=== PATIENT | female | born 1985 | race Two or more races ===

== ENCOUNTER 2024-05-01 23:15 | Inpatient (IN) | payer MEDICAID, OTHER ==
[~2024-05-01] VITALS: Ht 157.5 cm; Wt 56.8 kg
[2024-05-01 23:41] LABS: Basophils # (auto) 0.1 10 ^3/uL (0-0.2); Basophils % (auto) 0.5 % (0.0-2.0); Eosinophils # (auto) 0.3 10 ^3/uL (0-0.8); Eosinophils % (auto) 2.2 % (0.0-7.0); Hematocrit 44.1 % (36.0-46.0); Hemoglobin 14.8 g/dL (12.2-16.2); Lymphocytes # (auto) 3.6 10 ^3/uL (0.4-5.4); Lymphocytes % (auto) 30.5 % (10.0-50.0); Mean Corpuscular Hemoglobin 29.3 pg (28.0-32.0); Mean Corpuscular Hgb Conc. 33.5 g/dL (32.0-36.0); Mean Corpuscular Volume 87.5 fL (80.0-100.0); Monocytes # (auto) 0.7 10 ^3/uL (0-1.3); Monocytes % (auto) 5.6 % (0.0-12.0); Neutrophils # (auto) 7.3 10 ^3/uL (1.6-8.6); Neutrophils % (auto) 61.2 % (37.0-80.0); Platelet Count (auto) 195 10^3/uL (140-450); Red Blood Cells 5.04 10^6/uL (4.0-5.20); Red Cell Distribution Width 13.3 % (11.8-14.3); White Blood Cell 11.9 10^3/uL (4.4-10.8)
[2024-05-01] MEDS: NITROGLYCERIN 0.4 MG SL TAB SL ONE (23:49)
[2024-05-01 23:56] LABS: Alanine Aminotransferase 18 U/L (7-40); Albumin 4.9 g/dL (3.2-4.8); Alkaline Phosphatase 108 U/L (46-116); Anion Gap 13 (5-15); Aspartate Aminotransferase 19 U/L (13-40); BUN/Creatinine Ratio 12.5 (10.0-20.0); Blood Urea Nitrogen 10 mg/dL (9-23); Carbon Dioxide 18 mmol/L (20-30); Chloride 107 mmol/L (98-107); Glucose 155 mg/dL (74-106); Potassium 2.9 mmol/L (3.5-5.1); Sodium 138 mmol/L (136-145)
[2024-05-01 23:57] LABS: Bilirubin, Total 0.4 mg/dL (0.2-1.0); Total Protein 8.1 g/dL (5.7-8.2)
[2024-05-02] VITALS (38 sets, daily range): BP systolic 100–121; BP diastolic 52–80; PULSE 70–99; RESP 12–22; TEMP 97.4–98.5; O2SAT 93–99
[2024-05-02] MEDS: HEPARIN SODIUM (PORCINE) 5000 UNITS/ML 1ML VIAL ONE ×2 (00:21→00:32)
[2024-05-02] MEDS: HEPARIN SODIUM (PORCINE) 5000 UNITS/ML 1ML VIAL IV ONE (00:21)
[2024-05-02] MEDS: VERAPAMIL 2.5MG/ML INJ 2ML VIAL IV ONE (00:32)
[2024-05-02] MEDS: fentaNYL CITRATE 100 MCG/2 ML VL ONE (00:32)
[2024-05-02] MEDS: ANGIOMAX 250 MG VIAL IV ONE (00:32)
[2024-05-02] MEDS: LIDOCAINE 2%HCL (LOCAL ANESTH.) INJ 20ML MDV ONE (00:33)
[2024-05-02] MEDS: MIDAZOLAM HCL 2MG/2ML 2ml VIAL (1mg/ml) ONE (00:33)
[2024-05-02] MEDS: SODIUM CHL 0.9% 50 ML ONE (00:33)
[2024-05-02] MEDS: HEPARIN IN NS 1000Units/500mL 1,500 ML ONE (00:33)
[2024-05-02 00:38] LABS: INR 0.99 (0.9-1.15); Partial Thromboplastin Time 27.9 SEC (24.5-34.5); Prothrombin Time 10.5 sec (9.3-11.8)
[2024-05-02] MEDS: IODIXANOL 320MG/ML 100ML BTL IV ONE ×2 (00:43→01:01)
[2024-05-02] MEDS: ATROPINE SULF 1 MG/10ml SYR ONE (00:56)
[2024-05-02 01:24] LABS: Triglycerides 139 mg/dL (< 150)
[2024-05-02 01:25] LABS: LDL Cholesterol 132 mg/dL (< 100)
[2024-05-02 01:26] LABS: Cholesterol 191 mg/dL (< 200); HDL Cholesterol 40 mg/dL (40-59)
[2024-05-02] MEDS: TICAGRELOR 90 MG TAB ONE (01:36)
[2024-05-02] MEDS ORDERED: TICAGRELOR 90 MG TAB PO ONE (02:00)
[2024-05-02] MEDS ORDERED: FAMO20TA10 PO (03:12)
[2024-05-02] MEDS: POTASSIUM CHL 20MEQ/100ML 100 ML IV SCH (04:10)
[2024-05-02] MEDS: ATORVASTATIN 20 MG TAB PO ONE (04:35)
[2024-05-02 09:40] LABS: Alanine Aminotransferase 24 U/L (7-40); Albumin 4.3 g/dL (3.2-4.8); Alkaline Phosphatase 94 U/L (46-116); Anion Gap 10 (5-15); Aspartate Aminotransferase 100 U/L (13-40); BUN/Creatinine Ratio 14.8 (10.0-20.0); Blood Urea Nitrogen 9 mg/dL (9-23); CRP High Sensitivity 0.55 mg/dL (<1.0); Calcium 9.4 mg/dL (8.7-10.4); Carbon Dioxide 19 mmol/L (20-30); Chloride 108 mmol/L (98-107); Glucose 117 mg/dL (74-106); Magnesium 1.9 mg/dL (1.6-2.6); Potassium 3.9 mmol/L (3.5-5.1); Sodium 137 mmol/L (136-145)
[2024-05-02 09:41] LABS: Bilirubin, Total 0.5 mg/dL (0.2-1.0); Total Protein 6.9 g/dL (5.7-8.2)
[2024-05-02 10:04] LABS: Basophils # (auto) 0.1 10 ^3/uL (0-0.2); Basophils % (auto) 0.5 % (0.0-2.0); Eosinophils # (auto) 0.1 10 ^3/uL (0-0.8); Hematocrit 40.2 % (36.0-46.0); Hemoglobin 13.4 g/dL (12.2-16.2); Lymphocytes # (auto) 1.5 10 ^3/uL (0.4-5.4); Lymphocytes % (auto) 13.2 % (10.0-50.0); Mean Corpuscular Hemoglobin 29.1 pg (28.0-32.0); Mean Corpuscular Hgb Conc. 33.3 g/dL (32.0-36.0); Mean Corpuscular Volume 87.4 fL (80.0-100.0); Monocytes # (auto) 0.6 10 ^3/uL (0-1.3); Monocytes % (auto) 5.1 % (0.0-12.0); Neutrophils # (auto) 9.1 10 ^3/uL (1.6-8.6); Neutrophils % (auto) 80.2 % (37.0-80.0); Platelet Count (auto) 171 10^3/uL (140-450); Red Cell Distribution Width 13.5 % (11.8-14.3); White Blood Cell 11.4 10^3/uL (4.4-10.8)
[2024-05-02 10:57] LABS: Erythrocyte Sedimentation Rate 8 mm/hr (0-20)
[2024-05-02] MEDS: TICAGRELOR 90 MG TAB PO SCH (11:01)
[2024-05-02] MEDS ORDERED: ZOLPIDEM TARTRATE 5 MG TAB PO PRN (13:00)
[2024-05-02] MEDS ORDERED: ACETAMINOPHEN 325 MG TAB PO PRN (13:00)
[2024-05-02] MEDS ORDERED: ONDANSETRON HCL 4 MG/2 ML VIAL IV PRN (13:00)
[2024-05-02] MEDS: PANTOPRAZOLE 40 MG TAB PO ONE (14:05)
[2024-05-02] MEDS: ATORVASTATIN 20 MG TAB PO SCH (21:57)
[2024-05-03] VITALS (20 sets, daily range): BP systolic 92–110; BP diastolic 57–73; PULSE 74–99; RESP 14–24; TEMP 97.5–98.7; O2SAT 93–98
[2024-05-03 04:44] LABS: Chloride 109 mmol/L (98-107); Potassium 3.8 mmol/L (3.5-5.1); Sodium 139 mmol/L (136-145)
[2024-05-03 04:45] LABS: Anion Gap 9 (5-15); Calcium 9.2 mg/dL (8.7-10.4); Carbon Dioxide 21 mmol/L (20-30)
[2024-05-03 04:50] LABS: BUN/Creatinine Ratio 9.1 (10.0-20.0); Blood Urea Nitrogen 7 mg/dL (9-23); Glucose 108 mg/dL (74-106)
[2024-05-03 04:51] LABS: Magnesium 2.1 mg/dL (1.6-2.6)
[2024-05-03] MEDS: PANTOPRAZOLE 40 MG TAB PO SCH (05:49)
[2024-05-03] MEDS ORDERED: ATOR-507 PO (08:58)
[2024-05-03] MEDS ORDERED: TICA90TA PO (08:58)
[2024-05-03] MEDS ORDERED: METO25TA36 PO (08:58)
[2024-05-03] MEDS ORDERED: METOPROLOL SUCCINATE XL 50 MG TAB PO SCH (10:00)
[2024-05-03] MEDS: METOPROLOL TARTRATE 25 MG TAB PO ONE (11:14)
[2024-05-03] MEDS ORDERED: PANT40TA2 PO (11:37)
[2024-05-03] MEDS ORDERED: METO25TA5 PO (11:37)
[2024-05-03 17:09] LABS: Urine Bacteria None Seen /hpf (None Seen)
[2024-05-03 17:36] LABS: Amphetamine Screen, Urine Neg (NEGATIVE); Barbiturate Scree,Urine Neg (NEGATIVE); Benzodiazephine Screen, Urine Neg (NEGATIVE); Cocaine Screen, Urine Neg (NEGATIVE); Opiate Scree,Urine Neg (NEGATIVE); Phencyclidine Screen, Urine Neg (NEGATIVE); Urine Blood Negative /uL (Negative); Urine Clarity Clear (Clear); Urine Color Light-Yellow (Yellow); Urine Protein, UAD Negative (Negative); Urine Specific Gravity 1.015 (1.001-1.035); Urine Urobilinogen Normal (Negative); Urine WBC 2 /hpf (0 - 5); Urine pH 5.5 (5.0-9.0)
[2024-05-03 17:57] LABS: Cannabinoid Screen, Urine Neg (NEGATIVE)
[2024-05-03] MEDS ORDERED: MECLIZINE HCL 25 MG TAB PO PRN (20:00)
[2024-05-03] MEDS: SACUBITRIL-VALSARTAN 24mg/26mg TAB PO SCH (22:05)
[2024-05-03] MEDS: METOPROLOL TARTRATE 25 MG TAB PO SCH (22:09)
[2024-05-04 01:00] VITALS: BP 107/72; PULSE 80; RESP 18; TEMP 98.3; O2SAT 100
[2024-05-04 05:00] VITALS: BP 101/61; PULSE 79; RESP 18; TEMP 98.3; O2SAT 99
[2024-05-04 05:54] LABS: Calcium 9.6 mg/dL (8.7-10.4); Chloride 108 mmol/L (98-107); Potassium 3.6 mmol/L (3.5-5.1); Sodium 139 mmol/L (136-145)
[2024-05-04 05:55] LABS: Anion Gap 9 (5-15); Carbon Dioxide 22 mmol/L (20-30)
[2024-05-04 06:00] LABS: BUN/Creatinine Ratio 13.2 (10.0-20.0); Blood Urea Nitrogen 10 mg/dL (9-23); Glucose 102 mg/dL (74-106)
[2024-05-04 06:07] LABS: Basophils # (auto) 0.1 10 ^3/uL (0-0.2); Basophils % (auto) 0.5 % (0.0-2.0); Eosinophils # (auto) 0.3 10 ^3/uL (0-0.8); Eosinophils % (auto) 2.4 % (0.0-7.0); Hemoglobin 14.5 g/dL (12.2-16.2); Lymphocytes # (auto) 2.8 10 ^3/uL (0.4-5.4); Lymphocytes % (auto) 22.1 % (10.0-50.0); Mean Corpuscular Hemoglobin 29.5 pg (28.0-32.0); Mean Corpuscular Hgb Conc. 33.8 g/dL (32.0-36.0); Mean Corpuscular Volume 87.3 fL (80.0-100.0); Monocytes # (auto) 0.9 10 ^3/uL (0-1.3); Monocytes % (auto) 6.7 % (0.0-12.0); Neutrophils # (auto) 8.6 10 ^3/uL (1.6-8.6); Neutrophils % (auto) 68.3 % (37.0-80.0); Nucleated Red Blood Cells % 0.1 %; Platelet Count (auto) 196 10^3/uL (140-450); Red Blood Cells 4.93 10^6/uL (4.0-5.20); Red Cell Distribution Width 13.2 % (11.8-14.3); White Blood Cell 12.7 10^3/uL (4.4-10.8)
[2024-05-04 08:00] VITALS: PULSE 82; RESP 18
[2024-05-04 08:20] VITALS: BP_SYST 108; PULSE 90; RESP 16; TEMP 98.3; O2SAT 98
[2024-05-04] MEDS: SPIRONOLACTONE 25 MG TAB PO SCH (10:01)
[2024-05-04 12:15] VITALS: BP 107/65; PULSE 79; RESP 18; TEMP 97.9; O2SAT 98
[2024-05-04] MEDS: EMPAGLIFLOZIN 10 MG TAB PO SCH (17:00)
[2024-05-04 17:28] VITALS: BP 108/65; PULSE 90
[2024-05-05 12:47] LABS: Anti-Nuclear Antibody Direct Negative (Negative); Rheumatoid Arthritis Factor <10.0 IU/mL (<14.0)
== END 2024-05-04 19:20 | disposition home or self-care (01) | DRG 174 ==
LOC: ER 23:15 → TELE 05-02 01:27 → ICU WEST 05-02 02:22 → TELE-WESTW 05-03 13:52
PROVIDERS: ADMIT Internal Medicine; ATTEND Internal Medicine
PROC: 027035Z Dilation of Coronary Artery, One Artery with Two Drug-eluting Intraluminal Devices, Percutaneous Approach (ICD-10-PCS; principal; 2024-05-02)
PROC: 4A023N7 Measurement of Cardiac Sampling and Pressure, Left Heart, Percutaneous Approach (ICD-10-PCS; 2024-05-02)
PROC: B215YZZ Fluoroscopy of Left Heart using Other Contrast (ICD-10-PCS; 2024-05-02)
PROC: B211YZZ Fluoroscopy of Multiple Coronary Arteries using Other Contrast (ICD-10-PCS; 2024-05-02)
DX: I21.09 ST elevation (STEMI) myocardial infarction involving other coronary artery of anterior wall (principal); I25.42 Coronary artery dissection; I50.23 Acute on chronic systolic (congestive) heart failure; I25.5 Ischemic cardiomyopathy; E78.2 Mixed hyperlipidemia; Z88.6 Allergy status to analgesic agent; Z79.899 Other long term (current) drug therapy; Z79.02 Long term (current) use of antithrombotics/antiplatelets
CPT/HCPCS: 36415; 71045; 80048; 80053; 80061; 80307; 81001; 83036; 83735; 84443; 84484; 84702; 85025; 85610; 85652; 85730; 86038; 86141; 86431; 86850; 86900; 86901; 87081; 92941; 93005; 93306; 93458; 99152; 99291; C1874; G0378; J2250; J3480; Q9967

== ENCOUNTER 2024-05-09 20:24 | Inpatient (IN) | payer MEDICAID ==
[~2024-05-09] VITALS: Ht 157.5 cm; Wt 57.2 kg
[~2024-05-09 20:24] MED LIST: ATOR-507 PO; FAMO20TA10 PO; METO25TA5 PO; PANT40TA2 PO; TICA90TA PO
[2024-05-09 20:48] LABS: Basophils # (auto) 0.1 10 ^3/uL (0-0.2); Basophils % (auto) 0.7 % (0.0-2.0); Eosinophils # (auto) 0.1 10 ^3/uL (0-0.8); Hematocrit 43.1 % (36.0-46.0); Hemoglobin 14.4 g/dL (12.2-16.2); Lymphocytes % (auto) 22.8 % (10.0-50.0); Mean Corpuscular Hemoglobin 28.8 pg (28.0-32.0); Mean Corpuscular Hgb Conc. 33.5 g/dL (32.0-36.0); Mean Corpuscular Volume 85.8 fL (80.0-100.0); Monocytes # (auto) 0.8 10 ^3/uL (0-1.3); Monocytes % (auto) 5.8 % (0.0-12.0); Neutrophils # (auto) 9.1 10 ^3/uL (1.6-8.6); Neutrophils % (auto) 69.7 % (37.0-80.0); Nucleated Red Blood Cells % 0.1 %; Platelet Count (auto) 192 10^3/uL (140-450); Red Blood Cells 5.02 10^6/uL (4.0-5.20); Red Cell Distribution Width 12.9 % (11.8-14.3); White Blood Cell 13.1 10^3/uL (4.4-10.8)
[2024-05-09 21:10] LABS: Alanine Aminotransferase 27 U/L (7-40); Albumin 4.7 g/dL (3.2-4.8); Alkaline Phosphatase 154 U/L (46-116); Anion Gap 8 (5-15); Aspartate Aminotransferase 18 U/L (13-40); BUN/Creatinine Ratio 13.8 (10.0-20.0); Bilirubin, Total 0.6 mg/dL (0.2-1.0); Blood Urea Nitrogen 12 mg/dL (9-23); Calcium 9.9 mg/dL (8.7-10.4); Carbon Dioxide 22 mmol/L (20-30); Chloride 107 mmol/L (98-107); Glucose 100 mg/dL (74-106); Magnesium 2.2 mg/dL (1.6-2.6); Potassium 3.2 mmol/L (3.5-5.1); Sodium 137 mmol/L (136-145); Total Protein 7.5 g/dL (5.7-8.2)
[2024-05-09 21:14] LABS: INR 1.04 (0.9-1.15); Partial Thromboplastin Time 27.9 SEC (24.5-34.5)
[2024-05-09] MEDS ORDERED: NITROGLYCERIN 0.4 MG SL TAB SL PRN (22:15)
[2024-05-09] MEDS ORDERED: ONDANSETRON HCL 4 MG/2 ML VIAL IV PRN (22:15)
[2024-05-09] MEDS ORDERED: MORPHINE SULFATE INJ 2 MG/ml SYRG IV PRN (22:15)
[2024-05-09] MEDS ORDERED: ACETAMINOPHEN 325 MG TAB PO PRN (22:15)
[2024-05-09 22:41] VITALS: PULSE 80; RESP 15; O2SAT 100
[2024-05-09 22:44] LABS: Urine Bacteria None Seen /hpf (None Seen)
[2024-05-09 22:58] LABS: Urine Blood Negative /uL (Negative); Urine Clarity Clear (Clear); Urine Color Colorless (Yellow); Urine Protein, UAD Negative (Negative); Urine Specific Gravity 1.005 (1.001-1.035); Urine Urobilinogen Normal (Negative); Urine WBC <1 /hpf (0 - 5)
[2024-05-09] MEDS: POTASSIUM CHL 20 Meq TABLET PO ONE (22:59)
[2024-05-10 05:01] LABS: Chloride 110 mmol/L (98-107); Potassium 3.8 mmol/L (3.5-5.1); Sodium 140 mmol/L (136-145)
[2024-05-10 05:02] LABS: Anion Gap 9 (5-15); Calcium 9.4 mg/dL (8.7-10.4); Carbon Dioxide 21 mmol/L (20-30)
[2024-05-10 05:07] LABS: BUN/Creatinine Ratio 10.8 (10.0-20.0); Blood Urea Nitrogen 9 mg/dL (9-23); Glucose 95 mg/dL (74-106)
[2024-05-10 08:00] VITALS: PULSE 85; RESP 15; O2SAT 98
[2024-05-10] MEDS: TICAGRELOR 90 MG TAB PO SCH (10:38)
[2024-05-10] MEDS: METOPROLOL SUCCINATE XL 50 MG TAB PO SCH (10:39)
[2024-05-10 12:29] LABS: Amphetamine Screen, Urine Neg (NEGATIVE); Benzodiazephine Screen, Urine Neg (NEGATIVE)
[2024-05-10 12:30] LABS: Barbiturate Scree,Urine Neg (NEGATIVE); Cannabinoid Screen, Urine Neg (NEGATIVE); Cocaine Screen, Urine Neg (NEGATIVE); Opiate Scree,Urine Neg (NEGATIVE); Phencyclidine Screen, Urine Neg (NEGATIVE)
[2024-05-10 15:13] VITALS: BP 107/65; PULSE 86; RESP 14; TEMP 98.7; O2SAT 98
[2024-05-10] MEDS ORDERED: ATORVASTATIN 20 MG TAB PO SCH (22:00)
[2024-05-10] MEDS ORDERED: AMITRIPTYLINE HCL 10 MG TAB PO SCH (22:00)
[2024-05-10] MEDS ORDERED: SACUBITRIL-VALSARTAN 24mg/26mg TAB PO SCH (22:00)
[2024-05-11] MEDS ORDERED: EMPAGLIFLOZIN 10 MG TAB PO SCH (10:00)
== END 2024-05-10 15:53 | disposition home or self-care (01) | DRG 207 ==
LOC: ER 20:24 → TELE 22:06 → UNDODISIN 05-10 03:53
PROVIDERS: ADMIT Nurse Practitioner; ATTEND Nurse Practitioner Acute Care
DX: I31.9 Disease of pericardium, unspecified (principal); R65.10 Systemic inflammatory response syndrome (SIRS) of non-infectious origin without acute organ dysfunction; I50.9 Heart failure, unspecified; E78.5 Hyperlipidemia, unspecified; E87.6 Hypokalemia; I25.10 Atherosclerotic heart disease of native coronary artery without angina pectoris; F41.9 Anxiety disorder, unspecified; I25.2 Old myocardial infarction; Z79.02 Long term (current) use of antithrombotics/antiplatelets; Z88.6 Allergy status to analgesic agent; Z95.5 Presence of coronary angioplasty implant and graft; Z79.899 Other long term (current) drug therapy
CPT/HCPCS: 36415; 71045; 80048; 80053; 80307; 81001; 83735; 83880; 84443; 84484; 85025; 85379; 85610; 85730; 93005; 99291; G0378

== ENCOUNTER → 2024-07-12 | Outpatient (CLI) | payer MEDICAID ==
[~2024-07-12] MED LIST changes: -FAMO20TA10 PO
== END | disposition home or self-care (01) ==
LOC: XYW 13:27
PROVIDERS: ATTEND Internal Medicine
DX: I25.10 Atherosclerotic heart disease of native coronary artery without angina pectoris (principal)
CPT/HCPCS: 93306

== ENCOUNTER → 2024-07-15 | Outpatient (CLI) | payer MEDICAID ==
[2024-07-15 08:58] LABS: Basophils # (auto) 0 10 ^3/uL (0-0.2); Basophils % (auto) 0.6 % (0.0-2.0); Eosinophils # (auto) 0.2 10 ^3/uL (0-0.8); Eosinophils % (auto) 2.7 % (0.0-7.0); Hematocrit 41.9 % (36.0-46.0); Hemoglobin 14.2 g/dL (12.2-16.2); Lymphocytes % (auto) 23.6 % (10.0-50.0); Mean Corpuscular Hemoglobin 29.7 pg (28.0-32.0); Mean Corpuscular Volume 87.4 fL (80.0-100.0); Monocytes # (auto) 0.5 10 ^3/uL (0-1.3); Monocytes % (auto) 5.7 % (0.0-12.0); Neutrophils # (auto) 5.6 10 ^3/uL (1.6-8.6); Neutrophils % (auto) 67.4 % (37.0-80.0); Nucleated Red Blood Cells % 0.1 %; Platelet Count (auto) 191 10^3/uL (140-450); Red Cell Distribution Width 13.5 % (11.8-14.3); White Blood Cell 8.3 10^3/uL (4.4-10.8)
[2024-07-15 09:25] LABS: Alanine Aminotransferase 33 U/L (7-40); Albumin 4.6 g/dL (3.2-4.8); Alkaline Phosphatase 128 U/L (46-116); Anion Gap 8 (5-15); Aspartate Aminotransferase 15 U/L (13-40); BUN/Creatinine Ratio 10.5 (10.0-20.0); Bilirubin, Total 0.9 mg/dL (0.2-1.0); Blood Urea Nitrogen 9 mg/dL (9-23); CRP High Sensitivity 0.62 mg/dL (<1.0); Calcium 9.8 mg/dL (8.7-10.4); Carbon Dioxide 23 mmol/L (20-31); Chloride 110 mmol/L (98-107); Cholesterol 84 mg/dL (< 200); Glucose 96 mg/dL (74-106); HDL Cholesterol 31 mg/dL (40-59); LDL Cholesterol 40 mg/dL (< 100); Potassium 3.6 mmol/L (3.5-5.1); Sodium 141 mmol/L (136-145); Total Protein 7.6 g/dL (5.7-8.2); Triglycerides 91 mg/dL (< 150)
[2024-07-15 09:31] LABS: Erythrocyte Sedimentation Rate 10 mm/hr (0-20)
[2024-07-15 11:21] LABS: Free T4 (Free Thyroxine) 1.27 ng/dL (0.89-1.76)
[2024-07-15 11:22] LABS: Free T3 3.2 pg/mL (2.3-4.2)
[2024-07-16 08:06] LABS: Rheumatoid Arthritis Factor <10.0 IU/mL (<14.0)
[2024-07-16 14:06] LABS: Anti-Nuclear Antibody Direct Negative (Negative)
== END | disposition home or self-care (01) ==
LOC: LAB 08:42
PROVIDERS: ATTEND Internal Medicine
DX: E78.5 Hyperlipidemia, unspecified (principal); I21.4 Non-ST elevation (NSTEMI) myocardial infarction; R07.9 Chest pain, unspecified
CPT/HCPCS: 36415; 80053; 80061; 84439; 84443; 84481; 85025; 85652; 86038; 86141; 86431

== ENCOUNTER 2024-11-03 20:04 | Emergency (ER) | payer MEDICAID ==
[~2024-11-03] VITALS: Ht 157.5 cm; Wt 82.4 kg
[2024-11-03] MEDS ORDERED: ACET500T58 PO (21:07)
[2024-11-03 21:08] VITALS: BP 132/76; PULSE 101; RESP 18; TEMP 98; O2SAT 100
--- NOTE | 2024-11-03 21:08 | ED.PDOC ---
HPI (NEURO) HPI Comments 39 year old female presents to ER with complaints of headache x4 days. Patient reports she has been experiencing intermittent headache left-sided headache x4 days. She rates her current pain a 5/10 to left side of forehead with radiation towards the left side of neck and left ear. Notes that she has been taking Tylenol for her pain with some relief. Patient presents to ER ambulatory on arrival, alert oriented x4, with steady gait, in no distress. 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 all TALENT ANALYST Hx Family History Family History: Unknown Social History Smoker: Non-Smoker Alcohol: Occasionally Drugs: Denies Drug Use Lives In: Home Constitutional: denies: chills, diaphoresis, fatigue, fever, malaise, sweats, weakness, others EENTM: denies: blurred vision, double vision, ear bleeding, ear discharge, ear drainage, ear pain, ear ringing, eye pain, eye redness, hearing loss, mouth pain, mouth swelling, nasal discharge, nose bleeding, nose congestion, nose pain, photophobia, tearing, throat pain, throat swelling, voice changes, others Respiratory: denies: cough, hemoptysis, orthopnea, SOB at rest, shortness of breath, SOB with excertion, stridor, wheezing, others Cardiovascular: denies: chest pain, dizzy spells, diaphoresis, Dyspnea on exertion, edema, irregular heart beat, left arm pain, lightheadedness, palpitations, PND, syncope, others Gastrointestinal: denies: abdomen distended, abdominal pain, blood streaked bowels, constipated, diarrhea, dysphagia, difficulty swallowing, hematemesis, melena, nausea, poor appetite, poor fluid intake, rectal bleeding, rectal pain, vomiting, others Genitourinary: denies: abnormal vagina bleeding, burning, dyspareunia, dysuria, flank pain, frequency, hematuria, incontinence, pain, , vagina discharg e, urgency, others Neurological: reports: others ( STATED IN HPI) Musculoskeletal: denies: back pain, gout, joint pain, joint swelling, muscle pain, muscle stiffness, neck pain, others Integumetry: denies: bruises, change in color, change in hair/nails, dryness, laceration, lesions, lumps, rash, wounds, others Allergic/Immunocompromised: denies: Difficulty Healing, Frequent Infections, Hives, Itching, others Hematologic/Lymphatic: denies: anemia, blood clots, easy bleeding, easy bruising, swollen glands, others Endocrine: denies: excessive hunger, excessive sweating, excessive thirst, excessive urination, flushing, intolerance to cold, intolerance to heat, unexplained weight gain, unexplained weight loss, others Psychiatric: denies: anxiety, bipolar disorder, depression, hopeless, panic disorder, schizophrenia, sleepless, suicidal, others Physical Exam General Appearance: No Apparent Distress HEENT: Normal ENT Inspection, PERRL/EOMI, Pharynx Normal, TMs Normal, Other (CERUMEN IMPACTION NOTED TO LEFT MIDDLE EAR CANAL, NO ERYTHEMA APPRECIATED. EAR EXAM ON RIGHT- UNREMARKABLE) Neck: Full Range of Motion, Non-Tender, Normal Respiratory: Chest Non-Tender, Lungs Clear, No Accessory Muscle Use, No Respiratory Distress, Normal Breath Sounds Cardiovascular: No Murmur, No Gallop, Regular Rate/Rhythm Breast Exam: Deferred Gastrointestinal: NOT DONE Genitalia: Deferred Pelvic: Deferred Rectal: Deferred Extremities: Normal capillary refill, Normal range of motion Neurologic: Alert, flakeboard line tender II-XII nml as Tested, No Motor Deficits, Normal Affect, Normal Mood, No Sensory Deficits Cerebellar Function: Normal Reflexes: Normal Skin: Dry, Normal Color, Warm Peripheral Pulses: 2+ carotid (R), 2+ carotid (L), 2+ Radial (R), 2+ Radial (L), 2+ Brachial (R), 2+ Brachial (L) Lymphatic: No Adenopathy Was a procedure done? Was a procedure done?: No Sedation Sedation?: No Differential Diagnosis (SZ) Headache: Subarachnoid Hemorrhage, Subdural Hemorrhage, Mass Lesion X-Ray, Labs, Meds, VS Vital Signs Date Time Temp Pulse Resp B/P (MAP) Pulse Ox O2 Delivery O2 Flow Rate FiO2 11/03/24 21:08 98.0 101 18 132/76 (94) 100 98.0 11/03/24 21:08 101 18 100 Room Air 11/03/24 20:13 98.0 101 18 132/76 94 100 PATIENT: MARICRUZ HARVEYACCT: [id number] UNIT: [id number] : 1985 LOC: ER ROOM / BED: / AGE / SEX: 39 / F ADM STATUS: REG ER SERVICE 99 ORDERING PHYSICIAN: ROSE DIALLO PROCEDURE(s): HWOCT - HEAD WITHOUT CONTRAST REASON: headache ORDER NUMBER(s): [id number], ACCESSION NUMBER(s): [id number] CLINICAL HISTORY: headache TECHNIQUE: Helical imaging carried out from skull base to vertex without intravenous contrast. This exam was performed according to our departmental dose optimization program. Up-to-date CT equipment and radiation dose reduction techniques are utilized as appropriate. COMPARISON: None FINDINGS: The ventricles and subarachnoid spaces are normal in size and configuration. There is no midline shift or mass effect. The bernabe white matter interfaces are maintained. The basal cisterns are patent. There is no evidence of acute intracranial hemorrhage or extra-axial fluid collection. The mastoid air cells and visualized paranasal sinuses are well-aerated aside from mild mucosal thickening of posterior right ethmoid air cell. IMPRESSION: No acute intracranial abnormality. ATED BY: SILVERIO CRONIN MD DICTATED DATE/TIME: 11/03/242137 SIGNED BY: SILVERIO CRONIN MD SIGNED DATE/TIME: 11/03/242137 CC: CT head without contrast reviewed Advised to drink plenty of fluids Patient had improvement in symptoms and in no distress prior to discharge Advised to follow up with PCP in 1-2 days Patient alert and oriented x4 prior to discharge. Patient verbalized understanding and agreeable with current plan of care Advised to return to ER immediately if symptoms worse Images Reviewed?: Images reviewed and evaluated by me Time of 1ST Reevaluation: 20:44 Reevaluation 1ST: N/A Patient Education/Counseling: Diagnosis, Treatment, Prognosis, Need For Follow Up Family Education/Counseling: No Family Present Departure 1 Departure Time of Disposition: 21:02 Impression: Primary Impression: Migraine headache Qualified Codes: G43.909 - Migraine, unspecified, not intractable, without status migrainosus Additional Impression: Impacted cerumen of left ear Disposition: HOME / SELF CARE / HOMELESS Condition: Stable e-Prescriptions Carbamide Peroxide (Debrox) 6.5 % Consuelo 5 DROP OT BID for 4 Days, #1 BOTTLE 0 Refills Prov: ROSE DIALLO 11/03/24 Acetaminophen (Acetaminophen) 500 Mg Tab 500 MG PO Q4HPRN, #30 TAB 0 Refills Prov: ROSE DIALLO 11/03/24 Discharged With: Self Critical Care Note Critical Care Time?: No Stability Stability form required: No Heart Score Heart Score: Heart Score Response (Comments) Value History N/A 0 EKG N/A 0 Age N/A 0 Risk Factors N/A 0 Troponin N/A 0 Total 0 ROSE DIALLO Nov 03, 2024 21:08
--- NOTE | 2024-11-03 21:41 | DVH ---
CLINICAL HISTORY: headache TECHNIQUE: Helical imaging carried out from skull base to vertex without intravenous contrast. This e xam was performed according to our departmental dose optimization program. Up-to-date CT equipment an d radiation dose reduction techniques are utilized as appropriate. COMPARISON: None FINDINGS: The ventricles and subarachnoid spaces are normal in size and configuration. There is no midline oswald ft or mass effect. The bernabe white matter interfaces are maintained. The basal cisterns are patent. Th ere is no evidence of acute intracranial hemorrhage or extra-axial fluid collection. The mastoid air cells and visualized paranasal sinuses are well-aerated aside from mild mucosal thickening of posteri or right ethmoid air cell. IMPRESSION: No acute intracranial abnormality.
[2024-11-03] MEDS ORDERED: CARB6.5S44 OT (21:54)
== END 2024-11-03 22:00 | disposition home or self-care (01) ==
LOC: ER 20:04
DX: G43.909 Migraine, unspecified, not intractable, without status migrainosus (principal); H61.22 Impacted cerumen, left ear; I25.2 Old myocardial infarction; Z98.890 Other specified postprocedural states
CPT/HCPCS: 70450

== ENCOUNTER 2024-11-19 01:53 | Emergency (ER) | payer MEDICAID ==
[~2024-11-19] VITALS: Ht 157.5 cm; Wt 53.2 kg
[~2024-11-19 01:53] MED LIST changes: +ACET500T58 PO; +CARB6.5S44 OT
[2024-11-19 02:38] VITALS: BP 137/81; PULSE 91; RESP 16; TEMP 98.6; O2SAT 99
--- NOTE | 2024-11-19 02:47 | ED.PDOC ---
SOB-HPI HPI Comments This is a 39-year-old female presents to the ED chief complaint flu-like sympto ms. Pt C/O flulike Sx x 5 days. Productive cough with green mucous, sore throat and body pain. Reports recent travel or known ill contacts. 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 Hx Family History Family History: Unknown Social History Smoker: Non-Smoker Alcohol: Occasionally Drugs: Denies Drug Use Lives In: Home Constitutional: reports: chills, others (Body aches); denies: diaphoresis, fatigue, fever, malaise, sweats, weakness EENTM: reports: nasal discharge, throat pain; denies: blurred vision, double vision, ear bleeding, ear discharge, ear drainage, ear pain, ear ringing, eye pain, eye redness, hearing loss, mouth pain, mouth swelling, nose bleeding, nose congestion, nose pain, photophobia, tearing, throat swelling, voice changes, others Respiratory: reports: cough; denies: hemoptysis, orthopnea, SOB at rest, shortness of breath, SOB with excertion, stridor, wheezing, others Cardiovascular: denies: chest pain, dizzy spells, diaphoresis, Dyspnea on exertion, edema, irregular heart beat, left arm pain, lightheadedness, palpitations, PND, syncope, others Gastrointestinal: denies: abdomen distended, abdominal pain, blood streaked bowels, constipated, diarrhea, dysphagia, difficulty swallowing, hematemesis, melena, nausea, poor appetite, poor fluid intake, rectal bleeding, rectal pain, vomiting, others Genitourinary: denies: abnormal vagina bleeding, burning, dyspareunia, dysuria, flank pain, frequency, hematuria, incontinence, pain, , vagina discharge, urgency, others Neurological: denies: dizziness, fainting, headache, left sided numbness, left sided weakness, numbness, paresthesia, pre-existing deficit, right sided numbness, right sided weakness, seizure, speech problems, tingling, tremors, weakness, others Musculoskeletal: denies: back pain, gout, joint pain, joint swelling, muscle pain, muscle stiffness, neck pain, others Integumetry: denies: bruises, change in color, change in hair/nails, dryness, laceration, lesions, lumps, rash, wounds, others Allergic/Immunocompromised: denies: Difficulty Healing, Frequent Infections, Hives, Itching, others Hematologic/Lymphatic: denies: anemia, blood clots, easy bleeding, easy bruising, swollen glands, others Endocrine: denies: excessive hunger, excessive sweating, excessive thirst, excessive urination, flushing, intolerance to cold, intolerance to heat, unexplained weight gain, unexplained weight loss, others Psychiatric: denies: anxiety, bipolar disorder, depression, hopeless, panic disorder, schizophrenia, sleepless, suicidal, others Physical Exam General Appearance: No Apparent Distress, Normal HEENT: Pharyngeal Erythema, TMs Normal Neck: Full Range of Motion, Non-Tender Respiratory: No Accessory Muscle Use, No Respiratory Distress, Rhonchi (BILATERAL UPPER LOBES ) Cardiovascular: No Edema, No JVD, No Murmur, No Gallop, Normal Peripheral Pulses, Regular Rate/Rhythm Breast Exam: Deferred Gastrointestinal: No Organomegaly, Non Tender, No Pulsatile Mass, Normal Bowel Sounds, Soft Genitalia: Deferred Pelvic: Deferred Rectal: Deferred Extremities: Normal capillary refill, Normal inspection, Normal range of motion, Non-tender, No pedal edema Musculoskeletal : Apperance: Normal Neurologic: Alert, excel vba developer II-XII nml as Tested, No Motor Deficits, Normal Affect, Normal Mood, No Sensory Deficits Cerebellar Function: Normal Reflexes: Normal Skin: Dry, Normal Color, Warm Lymphatic: No Adenopathy Was a procedure done? Was a procedure done?: No Differential Dx Differential Diagnosis: Bronchitis, Pneumonia, Pharyngitis, URI X-Ray, Labs, Meds, VS Vital Signs Date Time Temp Pulse Resp B/P (MAP) Pulse Ox O2 Delivery O2 Flow Rate FiO2 11/19/24 02:38 91 16 99 11/19/24 02:38 98.6 91 16 137/81 (99) 99 98.6 11/19/24 02:09 98.6 91 16 137/81 (99) 99 Lab Test 11/19/24 02:30 Range/Units Influenza Type A Antigen Negative Negative Influenza Type B Antigen Negative Negative SARS-CoV-2 Antigen (Rapid) Negative NEGATIVE X-Ray, Labs, Meds, VS Comment CHEST X-RAY TWO VIEWS SHOWS NO ACUTE CARDIOPULMONARY FINDINGS. INFLUENZA A, B AND COVID SWABS NEGATIVE LIKELY UPPER RESPIRATORY INFECTION. TRIAL AZITHROMYCIN. WE WILL SCRIPT PHARMACY. ADVISED TO REST INCREASE P.O. FLUIDS WITH ELECTROLYTES OVER-THE-C OUNTER TYLENOL NEEDED FOR PAIN OR FEVER PER LABELED DOSING INSTRUCTIONS. FOLLOW UP WITH YOUR PCP IN 1-2 DAYS. TAKE MEDICATIONS PRESCRIBED SIDE EFFECTS DISCUSSED ER RETURN PRECAUTIONS GIVEN PATIENT INDICATES UNDERSTANDING AGREES WITH DISCHARGE PLAN OF CARE. Time of 1ST Reevaluation: 04:12 Reevaluation 1ST: Improved Patient Education/Counseling: Diagnosis, Treatment, Prognosis, Need For Follow Up Family Education/Counseling: No Family Present Departure 1 Departure Time of Disposition: 04:11 Impression: Primary Impression: URI (upper respiratory infection) Qualified Codes: J06.9 - Acute upper respiratory infection, unspecified Disposition: 01 HOME / SELF CARE / HOMELESS Condition: Stable e-Prescriptions Azithromycin (Azithromycin) 250 Mg Tab 250 MG PO DAILY MDD 500 for 5 Days, #6 TAB 0 Refills 2 TABLETS ORALLY ON DAY ONE, THEN 1 TABLET ORALLY DAILY FOR 4 DAYS Prov: JOSE SALAZAR 11/19/24 Discharged With: Self Critical Care Note Critical Care Time?: No Stability Stability form required: No Heart Score Heart Score: Heart Score Response (Comments) Value History N/A 0 EKG N/A 0 Age <45 0 Risk Factors 1 or 2 risk factors 1 Troponin N/A 0 Total 1 JOSE SALAZAR Nov 19, 2024 02:47
--- NOTE | 2024-11-19 03:24 | DVH ---
CHEST RADIOGRAPH Indication: SOB/COUGH Technique: Frontal and lateral view of the chest was obtained Comparison: None FINDINGS: Lines and Tubes: None Lungs: Clear Pleura: No effusion. No pneumothorax. Cardiomediastinal contours: Unremarkable Bones: Unremarkable IMPRESSION: 1. No evidence of acute disease.
[2024-11-19 03:58] LABS: COVID19 ANTIGEN SOFIA FIA NEGATIVE (NEGATIVE)
[2024-11-19 03:59] LABS: Rapid Influenza A Negative (Negative); Rapid Influenza B Negative (Negative)
[2024-11-19] MEDS ORDERED: AZIT-43 PO (04:11)
== END 2024-11-19 04:19 | disposition home or self-care (01) ==
LOC: ER 01:53
DX: J06.9 Acute upper respiratory infection, unspecified (principal); I25.2 Old myocardial infarction; Z98.890 Other specified postprocedural states; Z20.822 Contact with and (suspected) exposure to COVID-19
CPT/HCPCS: 36415; 71046; 87426; 87804

== ENCOUNTER → 2024-11-29 | Outpatient (CLI) | payer MEDICAID ==
[~2024-11-29] MED LIST changes: +AZIT-43 PO
[2024-11-29 12:18] LABS: Basophils # (auto) 0.1 10 ^3/uL (0-0.2); Basophils % (auto) 0.6 % (0.0-2.0); Eosinophils # (auto) 0.2 10 ^3/uL (0-0.8); Eosinophils % (auto) 2.2 % (0.0-7.0); Hematocrit 40.1 % (36.0-46.0); Hemoglobin 13.2 g/dL (12.2-16.2); Lymphocytes # (auto) 2.7 10 ^3/uL (0.4-5.4); Mean Corpuscular Hemoglobin 27.8 pg (28.0-32.0); Mean Corpuscular Hgb Conc. 32.8 g/dL (32.0-36.0); Mean Corpuscular Volume 84.7 fL (80.0-100.0); Monocytes # (auto) 0.5 10 ^3/uL (0-1.3); Monocytes % (auto) 5.2 % (0.0-12.0); Neutrophils # (auto) 6.8 10 ^3/uL (1.6-8.6); Nucleated Red Blood Cells % 0.1 %; Platelet Count (auto) 200 10^3/uL (140-450); Red Blood Cells 4.73 10^6/uL (4.0-5.20); Red Cell Distribution Width 13.3 % (11.8-14.3); White Blood Cell 10.3 10^3/uL (4.4-10.8)
[2024-11-29 12:58] LABS: Alanine Aminotransferase 20 U/L (7-40); Albumin 4.7 g/dL (3.2-4.8); Alkaline Phosphatase 105 U/L (46-116); Anion Gap 9 (5-15); BUN/Creatinine Ratio 14.7 (10.0-20.0); Blood Urea Nitrogen 11 mg/dL (9-23); Calcium 9.7 mg/dL (8.7-10.4); Carbon Dioxide 23 mmol/L (20-31); Glucose 88 mg/dL (74-106); Potassium 3.6 mmol/L (3.5-5.1); Sodium 140 mmol/L (136-145); Total Protein 7.5 g/dL (5.7-8.2)
[2024-11-29 12:59] LABS: Aspartate Aminotransferase 15 U/L (13-40); Bilirubin, Total 0.7 mg/dL (0.2-1.0)
[2024-11-29 13:00] LABS: Follicle Stimulating Hormone 1.66 IU/L (SEE BELOW); Free T4 (Free Thyroxine) 1.18 ng/dL (0.89-1.76); Leuteinizing Hormone 3.5 IU/L
[2024-11-29 13:01] LABS: Prolactin 8.48 ng/mL (2.8-29.2); Thyroid Stimulating Hormone 0.86 uIU/mL (0.55-4.78)
[2024-11-29 13:03] LABS: Beta HCG, Quantitative 0.8 mIU/mL (1.5-4.2); Chloride 108 mmol/L (98-107)
== END | disposition home or self-care (01) ==
LOC: LAB 11:31
DX: Z01.419 Encounter for gynecological examination (general) (routine) without abnormal findings (principal); O02.81 Inappropriate change in quantitative human chorionic gonadotropin (hCG) in early pregnancy; E28.2 Polycystic ovarian syndrome
CPT/HCPCS: 36415; 80053; 82626; 82670; 82672; 83001; 83002; 83036; 84144; 84146; 84403; 84439; 84443; 84702; 85025

== ENCOUNTER → 2025-01-03 | Outpatient (CLI) | payer MEDICAID ==
[2025-01-03 14:01] LABS: Basophils # (auto) 0.1 10 ^3/uL (0-0.2); Basophils % (auto) 0.6 % (0.0-2.0); Eosinophils # (auto) 0.4 10 ^3/uL (0-0.8); Eosinophils % (auto) 3.8 % (0.0-7.0); Hemoglobin 13.3 g/dL (12.2-16.2); Lymphocytes # (auto) 2.6 10 ^3/uL (0.4-5.4); Lymphocytes % (auto) 28.5 % (10.0-50.0); Mean Corpuscular Hemoglobin 27.8 pg (28.0-32.0); Mean Corpuscular Hgb Conc. 33.3 g/dL (32.0-36.0); Mean Corpuscular Volume 83.4 fL (80.0-100.0); Monocytes # (auto) 0.7 10 ^3/uL (0-1.3); Monocytes % (auto) 7.5 % (0.0-12.0); Neutrophils # (auto) 5.5 10 ^3/uL (1.6-8.6); Neutrophils % (auto) 59.6 % (37.0-80.0); Platelet Count (auto) 176 10^3/uL (140-450); Red Blood Cells 4.79 10^6/uL (4.0-5.20); Red Cell Distribution Width 13.7 % (11.8-14.3); White Blood Cell 9.3 10^3/uL (4.4-10.8)
[2025-01-03 15:18] LABS: Alanine Aminotransferase 20 U/L (7-40); Anion Gap 11 (5-15); Aspartate Aminotransferase 15 U/L (13-40); BUN/Creatinine Ratio 17.5 (10.0-20.0); Blood Urea Nitrogen 14 mg/dL (9-23); Calcium 9.9 mg/dL (8.7-10.4); Carbon Dioxide 24 mmol/L (20-31); Glucose 89 mg/dL (74-106); LDL Cholesterol 48 mg/dL (< 100); Potassium 3.7 mmol/L (3.5-5.1); Sodium 142 mmol/L (136-145); Total Protein 8.1 g/dL (5.7-8.2); Triglycerides 99 mg/dL (< 150)
[2025-01-03 15:19] LABS: Cholesterol 106 mg/dL (< 200); HDL Cholesterol 43 mg/dL (40-59)
[2025-01-03 15:20] LABS: Albumin 5.1 g/dL (3.2-4.8); Alkaline Phosphatase 123 U/L (46-116); Bilirubin, Total 0.7 mg/dL (0.2-1.0); Chloride 107 mmol/L (98-107)
[2025-01-03 15:57] LABS: Hepatitis B Core Total AB Negative (Negative)
[2025-01-03 16:11] LABS: Hepatitis A Total Antibody Positive (Negative); Hepatitis B Surface Antibody Positive (Negative); Hepatitis B Surface Antigen Negative (Negative); Hepatitis C Antibody Negative (Negative)
== END | disposition home or self-care (01) ==
LOC: LAB 13:35
PROVIDERS: ATTEND Licensed Practical Nurse
DX: E78.5 Hyperlipidemia, unspecified (principal); E55.9 Vitamin D deficiency, unspecified; Z12.11 Encounter for screening for malignant neoplasm of colon; I25.5 Ischemic cardiomyopathy; F32.0 Major depressive disorder, single episode, mild; Z79.899 Other long term (current) drug therapy
CPT/HCPCS: 36415; 80053; 80061; 82306; 82607; 83036; 84443; 85025; 86703; 86704; 86706; 86708; 86803; 87340

== ENCOUNTER 2025-04-11 07:42 | Outpatient (CLI) | payer MEDICAID ==
--- NOTE | 2025-04-11 10:41 | DVH ---
Procedure: NM STRESS TEST ROUTINE Exam Date: 04/11/2025 09:50 AM Reason for study/Clinical History: Chest pain Comparison Study: None Myocardial Perfusion Study with SPECT Please refer to cardiology report Impression: Please refer to cardiology report
--- NOTE | 2025-04-11 10:47 | DVHCARD ---
Cardiology Stress Test [place] Treadmill Stress Test [place] Referring MD: MD Simon Protocol: Franky (without cardiolite) Reason for referral: Chest Pain Target heart Rate:@85%: 153 Percent MPHR: 180 METS: 10.10 Resting Heart rate: 77 Resting Blood Pressure: 114/76 Exercise Heart Rate: 176 Exercise Blood Pressure: 150/80 Reason for Termination of Test: Shortness of breath Baseline EKG: Sinus rhythm with T-wave depression to anterior leads Stress EKG: Sinus tachycardia with non-specific ST-T wave changes Functional Capacity: Good Normal Heart Rate Response: Adequate Blood Pressure Response: Hypertensive Clinical response: Inconclusive Arrhythmia?: No Cardiolite Injected?: No ST-T Changes: Inconclusive Probability of Inducible Ische: inconclusive Comments: Artifact present,consider cardiolite stress test vs coronary angiogram Date of Service: Apr 11, 2025 Billing Provider: PUNEET MARTINEZ Cardiology Common Codes: PROCEDURE ONLY Treadmill w/o Cardiolite: [id number], INTERP, RPT PUNEET MARTINEZ Apr 11, 2025 10:47
[2025-04-11 13:14] VITALS: BP 114/76; PULSE 77; RESP 18
== END 2025-04-11 17:00 | disposition home or self-care (01) ==
LOC: XYW 07:42
PROVIDERS: ATTEND Internal Medicine
DX: R06.02 Shortness of breath (principal); R07.9 Chest pain, unspecified
CPT/HCPCS: 93017